=== PATIENT | male | born 1995 | race Caucasian/White ===

== ENCOUNTER 2021-11-20 14:05 | Emergency (ER) | payer OTHER ==
[2021-11-20 14:06] VITALS: BP 136/70
[2021-11-20] MEDS ORDERED: IBUPROFEN 800 MG TAB PO ONE (14:30)
[2021-11-20] MEDS ORDERED: IBUP80TA PO (14:50)
== END 2021-11-20 15:00 | disposition home or self-care (01) ==
LOC: M ED 14:05
DX: S97.81XA Crushing injury of right foot, initial encounter (principal); W23.0XXA Caught, crushed, jammed, or pinched between moving objects, initial encounter; Y92.9 Unspecified place or not applicable; Y93.9 Activity, unspecified; Y99.9 Unspecified external cause status